=== PATIENT | female | born 1960 | race Caucasian/White ===

== ENCOUNTER 2018-03-09 08:35 | Day surgery (SDC) | payer OTHER ==
[2018-03-09] MEDS ORDERED: LIDOCAINE 2% (SDV) 5 ML INJ (10:35)
[2018-03-09] MEDS ORDERED: MIDAZOLAM 1 MG/ML 2 ML INJ (10:35)
[2018-03-09] MEDS ORDERED: PROPOFOL 20 ML (10:35)
== END 2018-03-09 15:39 | disposition home or self-care (01) ==
LOC: GIL 08:35
DX: Z12.11 Encounter for screening for malignant neoplasm of colon (principal); K64.4 Residual hemorrhoidal skin tags; K62.1 Rectal polyp; K57.30 Diverticulosis of large intestine without perforation or abscess without bleeding; R63.4 Abnormal weight loss; Z68.23 Body mass index [BMI] 23.0-23.9, adult; M54.9 Dorsalgia, unspecified; E78.00 Pure hypercholesterolemia, unspecified
CPT/HCPCS: 45380; 88305